=== PATIENT | female | born 1960 | race Two or more races ===

== ENCOUNTER 2024-07-19 22:04 | Emergency (ER) | payer OTHER ==
[~2024-07-19] VITALS: Ht 154.9 cm; Wt 63.0 kg
[2024-07-19] MEDS: cefTRIAXone 2GM/50ML D5W 50 ML IV ONE (23:00)
[2024-07-19 23:09] LABS: Urine Bacteria FEW /hpf (None Seen); Urine Blood TRACE /uL (Negative); Urine Clarity Turbid (Clear); Urine Color Colorless (Yellow); Urine Protein, UAD Negative (Negative); Urine Specific Gravity 1.005 (1.001-1.035); Urine Squamous Epithelial Cell None Seen /hpf (<5); Urine Urobilinogen Normal (Negative); Urine WBC 23 /HPF (0-5)
[2024-07-19 23:20] LABS: Basophils # (auto) 0.1 10 ^3/uL (0-0.2); Basophils % (auto) 1.3 % (0.0-2.0); Eosinophils # (auto) 0.2 10 ^3/uL (0-0.8); Eosinophils % (auto) 1.6 % (0.0-7.0); Hematocrit 33.8 % (36.0-46.0); Hemoglobin 11.5 g/dL (12.2-16.2); Lymphocytes # (auto) 2.2 10 ^3/uL (0.4-5.4); Lymphocytes % (auto) 22.7 % (10.0-50.0); Mean Corpuscular Hemoglobin 27.7 pg (28.0-32.0); Mean Corpuscular Hgb Conc. 33.9 g/dL (32.0-36.0); Mean Corpuscular Volume 81.7 fL (80.0-100.0); Monocytes # (auto) 1.2 10 ^3/uL (0-1.3); Monocytes % (auto) 12.4 % (0.0-12.0); Nucleated Red Blood Cells % 0.1 %; Platelet Count (auto) 271 10^3/uL (140-450); Red Blood Cells 4.14 10^6/uL (4.0-5.20); Red Cell Distribution Width 15.2 % (11.8-14.3); White Blood Cell 9.6 10^3/uL (4.4-10.8)
[2024-07-19] MEDS: IOHEXOL 300 MG/ML 100ML BOTTLE IJ ONE (23:23)
[2024-07-19] MEDS: SODIUM CHLORIDE 0.9% 1,000 ML IV ONE (23:28)
--- NOTE | 2024-07-19 23:32 | ED.PDOC ---
General HPI Comments 63 year old female came to ER due to urinary problems. Patient has history of hypertension and diabetes. Recently diagnosed with hydronephrosis, in underwent ureteral stent insertion at [facility]. Said Ureteral stents were removed 2 weeks ago. For the past 3 days, patient has been complaining of right flank pains, hea daches, back pains, fever, chills, nausea and urinary frequency. Denies any vomiting, changes in bowel habits or dysuria or gross hematuria Chief Complaint: Urinary Time Seen by MD: 23:10 Reviewed notes: Nurses Notes Allergies: Coded Allergies: NO KNOWN ALLERGIES (Unverified , 07/19/24) Home Meds Active Scripts Ciprofloxacin Hcl (Ciprofloxacin Hcl) 500 Mg Tab, 1 TAB PO BID, #14 TAB Prov:FROYLAN KANG MD 07/20/24 Information Source: Patient Mode of Arrival: Ambulatory Severity: Moderate Inability to void: Mild Timing: Days Duration: Since onset Has not urinated for: Minutes Review of Systems REVIEW OF SYSTEMS: (+) fever, (+) chills, or fatigue HEENT: No sore throat, no earache, no congestion, no neck pain. Cardiac: No chest pain. No palpitations. Lungs: No shortness of breath, no cough. GI: No nausea, no vomiting, no diarrhea, no constipation, no abdominal pain : No dysuria, frequency, or urgency. No hematuria. (+) right flank pains, (+) frequency Musculoskeletal: No joint pain , no joint swelling, no extremity edema. Skin: No rash, no itching. Neuro: No headache, no dizziness, no weakness Vital Signs Vital Signs Date Time Temp Pulse Resp B/P (MAP) Pulse Ox O2 Delivery O2 Flow Rate FiO2 07/20/24 01:00 91 20 160/78 07/20/24 01:00 98.5 96 98.5 07/19/24 23:55 Room Air* 0 21 Physical Exam General: Awake, alert and oriented. No acute distress. Skin: Skin in warm, dry and intact. Appropriate color for ethnicity. HEENT: The head is normocephalic and atraumatic. Conjunctivae are clear without exudates or hemorrhage. Sclera is non-icteric. EOM are intact. No signs of nystagmus. Eyelids are normal in appearance without swelling or lesions. Oral mucosa is pink and moist Neck: The neck is supple with normal range of motion. No JVD. Cardiac: Heart rate and rhythm are normal. No murmurs, gallops, or rubs are auscultated. Respiratory: No signs of respiratory distress. Lung sounds are clear in all lobes bilaterally without rales, ronchi, or wheezes. Abdominal: Abdomen is soft, non-tender without distention. Positive right CVA tenderness. Bowel sounds are present and normoactive in all four quadrants. Extremities: Upper and lower extremities are atraumatic in appearance without deformity or edema. Neurological: The patient is awake, alert and oriented to person, place, and time with normal speech. Speech is clear. There is no facial asymmetry. Able to ambulate in the emergency department without difficulty. Psychiatric: Appropriate mood and affect. Good judgement and insight. No visual or auditory hallucinations. Past Medical History PAST MEDICAL HISTORY: DM, HTN, Thyroid, UTI'S Past Medical History (Other): Hydronephrosis Surgical History (Other): Ureteral stents [employer] History: Denies all [employer] Hx Family History Family History: Reviewed,noncontributory to illness Social History Smoker: Non-Smoker Alcohol: Denies ETOH Use Drugs: Denies Drug Use Lives In: Home Was a procedure done? Was a procedure done?: No Differential Diagnosis Kidney stone (Female): Musculoskeletal pain, Pancreatitis, Pyelonephritis, Renal failure, Strain, Urinary obstruction, Urolithiasis Urinary Problem (Female): Post-op complication, Pyelonephritis, Urinary retention, Urolithiasis, UTI X-Ray, Labs, Meds, VS Vital Signs Date Time Temp Pulse Resp B/P (MAP) Pulse Ox O2 Delivery O2 Flow Rate FiO2 07/20/24 01:00 91 20 160/78 07/20/24 01:00 98.5 91 18 160/78 (105) 96 98.5 07/20/24 00:45 160/78 07/20/24 00:16 98.4 89 19 178/83 (114) 96 98.4 07/19/24 23:56 86 13 170/91 07/19/24 23:55 87 22 98 Room Air* 0 21 07/19/24 23:50 98.5 87 18 170/91 (117) 97 98.5 07/19/24 22:04 98.5 88 22 170/91 (117) 94 98.5 Lab Test 07/19/24 23:06 07/19/24 22:47 Range/Units White Blood Count 9.6 4.4-10.8 10^3/uL Red Blood Count 4.14 4.0-5.20 10^6/uL Hemoglobin 11.5 L 12.2-16.2 g/dL Hematocrit 33.8 L 36.0-46.0 % Mean Corpuscular Volume 81.7 80.0-100.0 fL Mean Corpuscular Hemoglobin 27.7 L 28.0-32.0 pg Mean Corpuscular Hemoglobin Concent 33.9 32.0-36.0 g/dL Red Cell Distribution Width 15.2 H 11.8-14.3 % Platelet Count 271 140-450 10^3/uL Mean Platelet Volume 8.5 6.9-10.8 fL Neutrophils (%) (Auto) 62.0 37.0-80.0 % Lymphocytes (%) (Auto) 22.7 10.0-50.0 % Monocytes (%) (Auto) 12.4 H 0.0-12.0 % Eosinophils (%) (Auto) 1.6 0.0-7.0 % Basophils (%) (Auto) 1.3 0.0-2.0 % Neutrophils # (Auto) 6.0 1.6-8.6 10 ^3/uL Lymphocytes # (Auto) 2.2 0.4-5.4 10 ^3/uL Monocytes # (Auto) 1.2 0-1.3 10 ^3/uL Eosinophils # (Auto) 0.2 0-0.8 10 ^3/uL Basophils # (Auto) 0.1 0-0.2 10 ^3/uL Nucleated Red Blood Cells 0.1 % Sodium Level 137 136-145 mmol/L Potassium Level 4.1 3.5-5.1 mmol/L Chloride Level 104 98-107 mmol/L Carbon Dioxide Level 23 20-31 mmol/L Anion Gap 10 5-15 Blood Urea Nitrogen 15 9-23 mg/dL Creatinine 1.01 0.550-1.02 mg/dL Glomerular Filtration Rate Calc 62 >90 mL/min BUN/Creatinine Ratio 14.9 10.0-20.0 Serum Glucose 111 H 74-106 mg/dL Hemoglobin A1c 5.9 H <5.7 % A1C Lactic Acid Level 1.0 0.4-2.0 mmol/L Calcium Level 9.7 8.7-10.4 mg/dL Total Bilirubin 0.7 0.2-1.0 mg/dL Aspartate Amino Transferase (AST) 16 13-40 U/L Alanine Aminotransferase (ALT) 18 7-40 U/L Alkaline Phosphatase 86 46-116 U/L Total Protein 7.3 5.7-8.2 g/dL Albumin 4.8 3.2-4.8 g/dL Vitamin D 25-Hydroxy Pending Thyroid Stimulating Hormone (TSH) 1.25 0.55-4.78 uIU/mL Urine Color Colorless Yellow Urine Clarity Turbid H Clear Urine pH 6.0 5.0-9.0 Urine Specific [place] 1.005 1.001-1.035 Urine Protein Negative Negative Urine Ketones Negative Negative Urine Blood Trace H Negative /uL Urine Nitrite Negative Negative Urine Bilirubin Negative Negative Urine Urobilinogen Normal Negative mg/dL Urine Leukocyte Esterase 2+ Negative /uL Urine RBC 1 0 - 4 /hpf Urine Microscopic WBC 23 H 0-5 /HPF Urine Squamous Epithelial Cells None seen <5 /hpf Urine Bacteria Few H None Seen /hpf Urine Glucose Normal Normal mg/dL Current Medications Medications (Trade) Dose Ordered Sig/Jil Route Start Time Stop Time Status Last Admin Sodium Chloride 1,000 ml @ 1,000 mls/hr Q1H ONCE IV 07/19/24 23:00 07/19/24 23:59 DC 07/19/24 23:28 Ceftriaxone Sodium/Dextrose 50 ml @ 50 mls/hr ONCE ONCE IV 07/19/24 23:00 07/19/24 23:59 DC 07/19/24 23:00 Morphine Sulfate 2 mg ONCE ONCE IM 07/20/24 00:00 07/20/24 00:01 DC 07/19/24 23:56 Ondansetron HCl (Zofran) 4 mg ONCE ONCE IV 07/20/24 00:00 07/20/24 00:01 DC 07/19/24 23:54 Time of 1ST Reevaluation: 23:04 Reevaluation 1ST: Unchanged Patient Education/Counseling: Diagnosis, Treatment Family Education/Counseling: Diagnosis, Treatment Departure 1 Departure Time of Disposition: 01:52 Impression: Primary Impression: Urinary tract infection Additional Impressions: Hydronephrosis, right Elevated blood pressure reading without diagnosis of hypertension Disposition: 01 HOME / SELF CARE / HOMELESS Condition: Stable Additional Instructions: ED DISCHARGE INSTRUCTIONS Instructions: Please read all instructions provided in this packet carefully. Although you have been discharged from the Emergency Department, this does not mean that you have a "clean bill of health". No definitive diagnosis for your symptoms has been made today. It is possible that you are in the process of developing a serious illness. This is why you must return to the ED without fail if any new or worsening symptoms (especially if your symptoms include chest pain, trouble breathing, abdominal pain, fever, headache, confusion, trouble seeing, or trouble walking) It is also very important that you see a primary care doctor within the next 3-5 days to follow up. Follow up with your urologist. If you are unable to get an appointment, return to the ED for re-evaluation. You had elevated blood pressure reading today. Untreated high blood pressure can have serious consequences. However, you need a follow-up appointment to recheck your blood pressure to determine whether or not you need treatment. Make an augustina ointment with your primary care provider for this within the next week. Urinary Tract Infection (UTI) in Women: Care Instructions A urinary tract infection (UTI) is an infection caused by bacteria. It can happen anywhere in the urinary tract. A UTI can happen in the: Kidneys. Ureters, the tubes that connect the kidneys to the bladder. Bladder. Urethra, where the urine comes out. Most UTIs are bladder infections. They often cause pain or burning when you urinate. Most UTIs can be cured with antibiotics. If you are prescribed antibiotics, be sure to complete your treatment so that the infection does not get worse. Follow-up care is a jacobson part of your treatment and safety. Be sure to make and go to all appointments, and call your doctor if you are having problems. It's also a good idea to know your test results and keep a list of the medicines you take. How can you care for yourself at home? Take your antibiotics as directed. Do not stop taking them just because you feel better. You need to take the full course of antibiotics. Drink extra water and other fluids for the next day or two. This will help make the urine less concentrated and help wash out the bacteria that are causing the infection. (If you have kidney, heart, or liver disease and have to limit fluids, talk with your doctor before you increase the amount of fluids you drink.) Avoid drinks that are carbonated or have caffeine. They can irritate the bladder. Urinate often. Try to empty your bladder each time. To relieve pain, take a hot bath or lay a heating pad set on low over your lower belly or genital area. Never go to sleep with a heating pad in place. To prevent UTIs Drink plenty of water each day. This helps you urinate often, which clears bacteria from your system. (If you have kidney, heart, or liver disease and have to limit fluids, talk with your doctor before you increase the amount of fluids you drink.) Urinate when you need to. If you are sexually active, urinate right after you have sex. Change sanitary pads often. Avoid douches, bubble baths, feminine hygiene sprays, and other feminine hygiene products that have deodorants. After going to the bathroom, wipe from front to back. When should you call for help? Call your doctor now or seek immediate medical care if: You have new or worse fever, chills, nausea, or vomiting. You have new pain in your back just below your rib cage. This is called flank pain. There is new blood or pus in your urine. You have any problems with your antibiotic medicine. Watch closely for changes in your health, and be sure to contact your doctor if: You are not getting better after taking an antibiotic for 2 days. Your symptoms go away but then come back. e-Prescriptions Ciprofloxacin Hcl (Ciprofloxacin Hcl) 500 Mg Tab 1 TAB PO BID, #14 TAB Prov: FROYLAN KANG MD 07/20/24 Comments 63-year-old female with recent ureteral stent removal for hydronephrosis presents with right flank pain, fever, chills. Workup shows urinary tract infection with persistent right hydronephrosis. Dose of Rocephin and IV fluids administered in the emergency department. Antibiotic prescription sent to pharmacy. Patient's symptoms improved with treatment in the emergency department. Patient advised to follow up with primary care provider and urology for further evaluation and treatment. Extensive evaluation was performed in attempt to identify or rule out: (See differential diagnosis section) The following tests were ordered, and results were reviewed by me and discussed with the patient and family at bedside: (See diagnostic results section) I reviewed the following notes from the pt's past medical encounters: (None available at this time) Additional information was gathered from interviewing the following independent historians: Dr. Correa, patient's daughter at bedside Discussion of management or test interpretation with external physician/other qualified health physician primary care sports medicine: Dr. Correa Decision regarding hospitalization or escalation of hospital level of care: Risks and benefits of admission for further treatment of patient's condition was considered however due to patient's stable condition patient will be discharged to follow up closely or return to care for worsening of condition or inability to follow up. Critical Care Note Critical Care Time?: No Stability Stability form required: No Heart Score Heart Score: Heart Score Response (Comments) Value History N/A 0 EKG N/A 0 Age N/A 0 Risk Factors N/A 0 Troponin N/A 0 Total 0 I personally scribed for FROYLAN KANG MD ([email or web address]) on 07/19/24 at 23:32. E lectronically submitted by Felipe Castro ([email or web address]). FROYLAN KANG MD Jul 19, 2024 23:32
[2024-07-19 23:45] LABS: Alanine Aminotransferase 18 U/L (7-40); Albumin 4.8 g/dL (3.2-4.8); Alkaline Phosphatase 86 U/L (46-116); Anion Gap 10 (5-15); Aspartate Aminotransferase 16 U/L (13-40); BUN/Creatinine Ratio 14.9 (10.0-20.0); Blood Urea Nitrogen 15 mg/dL (9-23); Calcium 9.7 mg/dL (8.7-10.4); Carbon Dioxide 23 mmol/L (20-31); Chloride 104 mmol/L (98-107); Potassium 4.1 mmol/L (3.5-5.1); Sodium 137 mmol/L (136-145); Total Protein 7.3 g/dL (5.7-8.2)
[2024-07-19 23:46] LABS: Bilirubin, Total 0.7 mg/dL (0.2-1.0)
[2024-07-19] MEDS: ONDANSETRON HCL 4 MG/2 ML VIAL IV ONE (23:54)
[2024-07-19 23:55] VITALS: PULSE 87; RESP 22; O2SAT 98
[2024-07-19] MEDS: MORPHINE SULFATE INJ 2 MG/ml SYRG IM ONE (23:56)
[2024-07-19 23:59] LABS: Glucose 111 mg/dL (74-106)
[2024-07-20] MEDS: cloNIDine HCL 0.1 MG TAB PO ONE (00:45)
[2024-07-20 01:00] VITALS: BP 160/78; PULSE 91; RESP 20; TEMP 98.5; O2SAT 96
--- NOTE | 2024-07-20 01:39 | DVH ---
CT OF THE ABDOMEN AND PELVIS WITH CONTRAST. HISTORY: Recent right nephrostomy, flank pain COMPARISON: At the time of this review, no prior studies are available for comparison. TECHNIQUE: Helical axial CT images of the abdomen and pelvis were obtained with intravenous contrast. Multiplanar reformats. One or more of the following radiation dose reduction techniques were used fo r this examination: automated exposure control, adjustment of the mA and/or kV according to patient s ize, use of iterative reconstruction technique. FINDINGS: Mild scattered atelectasis / scarring in the imaged lung bases. Liver: No discrete hepatic lesions identified. Gallbladder and biliary system: Cholelithiasis. No appreciable biliary ductal dilatation. Pancreas: Negative. Spleen: Negative. Adrenal Glands: Negative. Kidneys and collecting system: Moderate to severe right hydronephrosis. Moderate right hydroureter. No sizable, obstructing urinary tract calculi identified at this time. No left hydroureteronephrosis. Retroperitoneum: Aortoiliac atherosclerotic calcifications. No evidence of abdominal aortic aneurysm. Lymph nodes: No discretely enlarged lymph nodes identified. Bowel: No evidence of bowel obstruction. Normal caliber appendix. No free intraperitoneal air or flui d identified. Pelvis: No sizable bladder calculus. Mild symmetrical thickening of the bladder. Osseous structures: No destructive osseous lesions identified. IMPRESSION: Moderate to severe right hydronephrosis and moderate right hydroureter. No sizable, obstructing urina ry tract calculi identified at this time. Right UPJ and distal ureteral strictures can not be entirel y excluded. Recommend further workup as clinically indicated. Mild symmetrical bladder thickening which may be in part due to underdistention. Please correlate to exclude UTI/cystitis. Cholelithiasis. HS:Y
[2024-07-20] MEDS ORDERED: CIPR500T4 PO (01:40)
== END 2024-07-20 01:47 | disposition home or self-care (01) ==
LOC: ER 22:04
DX: N39.0 Urinary tract infection, site not specified (principal); N13.30 Unspecified hydronephrosis; R03.0 Elevated blood-pressure reading, without diagnosis of hypertension; I10 Essential (primary) hypertension; E11.9 Type 2 diabetes mellitus without complications
CPT/HCPCS: 36415; 74177; 80053; 81001; 82306; 83036; 83605; 84443; 85025; 96365; 96372; 96375; 99285; J0696; J2270; J2405; J7030; Q9967